=== PATIENT | male | born 1940 | race Two or more races ===

== ENCOUNTER → 2016-09-06 | Outpatient (REF) | payer MEDICARE, BC ==
[2016-09-06 13:20] LABS: FERRITIN 24 NG/ML (26-388)
[2016-09-06 13:22] LABS: VITAMIN B12 LEVEL 350 PG/ML (247-911)
== END ==
LOC: M LAB REF 12:41
PROVIDERS: ATTEND Internal Medicine
DX: R73.09 Other abnormal glucose (principal); D50.9 Iron deficiency anemia, unspecified; Z98.84 Bariatric surgery status

== ENCOUNTER → 2017-01-02 | Outpatient (REF) | payer MEDICARE, BC ==
[2017-01-02 14:30] LABS: FERRITIN 24 NG/ML (26-388)
[2017-01-02 14:32] LABS: VITAMIN B12 LEVEL 532 PG/ML (247-911)
== END ==
LOC: M LAB REF 12:48
PROVIDERS: ATTEND Internal Medicine
DX: D51.9 Vitamin B12 deficiency anemia, unspecified (principal); D50.9 Iron deficiency anemia, unspecified

== ENCOUNTER → 2017-08-28 | Outpatient (REF) | payer MEDICARE, OTHER, BC ==
[2017-08-28 18:50] LABS: FOLATE 20.1 NG/ML; VITAMIN B12 LEVEL 916 PG/ML
[2017-08-28 19:00] LABS: FERRITIN 20 NG/ML (26-388)
== END ==
LOC: M LAB REF 17:49
DX: D50.9 Iron deficiency anemia, unspecified (principal)
CPT/HCPCS: 82746

== ENCOUNTER → 2018-09-03 | Outpatient (REF) | payer MEDICARE ==
[2018-09-03 13:59] LABS: FOLATE 14.5 NG/ML
== END ==
LOC: M LAB REF 12:23
PROVIDERS: ATTEND Nurse Practitioner Family
DX: Z98.84 Bariatric surgery status (principal); D51.9 Vitamin B12 deficiency anemia, unspecified

== ENCOUNTER → 2019-01-07 | Outpatient (REF) | payer MEDICARE ==
[2019-01-07 13:03] LABS: FERRITIN 31 NG/ML (26-388)
[2019-01-07 15:30] LABS: FOLATE > 24.0 NG/ML; VITAMIN B12 LEVEL 341 PG/ML
[2019-01-09 00:08] LABS: Lyme Disease IgG/IgM Antibodie <0.91 ISR (0.00-0.90); Lyme Disease IgM Ab Quantitati <0.80 index (0.00-0.79)
== END ==
LOC: M LAB REF 11:52
PROVIDERS: ATTEND Internal Medicine
DX: Z98.84 Bariatric surgery status (principal); D50.9 Iron deficiency anemia, unspecified; M79.10 Myalgia, unspecified site

== ENCOUNTER → 2019-08-22 | Outpatient (REF) | payer MEDICARE ==
[2019-08-22 14:49] LABS: FERRITIN 27 NG/ML (26-388)
[2019-08-22 14:58] LABS: FOLATE > 24.0 NG/ML; VITAMIN B12 LEVEL 453 PG/ML
== END ==
LOC: M LAB REF 11:59
PROVIDERS: ATTEND Internal Medicine
DX: Z98.84 Bariatric surgery status (principal)

== ENCOUNTER → 2019-10-12 | Outpatient (CLI) | payer MEDICARE | LOC: M LABSMTC 09:32 | PROVIDERS: ATTEND Internal Medicine Cardiovascular Disease | DX: Z11.59 Encounter for screening for other viral diseases (principal); Z20.828 Contact with and (suspected) exposure to other viral communicable diseases | CPT/HCPCS: C9803; U0003 ==

== ENCOUNTER → 2019-11-27 | Outpatient (REF) | payer MEDICARE ==
[2019-11-27 19:13] LABS: PERCENT SATURATION 7.3 % (19.7-50.0)
== END ==
LOC: M LAB REF 11-26 08:23
PROVIDERS: ATTEND Internal Medicine
DX: D50.9 Iron deficiency anemia, unspecified (principal)

== ENCOUNTER → 2020-01-06 | Outpatient (REF) | payer MEDICARE | LOC: M LAB REF 12:26 | PROVIDERS: ATTEND Internal Medicine | DX: I50.33 Acute on chronic diastolic (congestive) heart failure (principal) ==

== ENCOUNTER → 2020-10-21 | Outpatient (REF) | payer MEDICARE ==
[2020-10-21 18:34] LABS: FERRITIN 23 NG/ML (26-388)
[2020-10-21 18:38] LABS: VITAMIN B12 LEVEL 438 PG/ML
[2020-10-21 18:39] LABS: FOLATE > 24.0 NG/ML
== END ==
LOC: M LAB REF 17:56
PROVIDERS: ATTEND Internal Medicine
DX: D50.9 Iron deficiency anemia, unspecified (principal)

== ENCOUNTER 2021-08-29 05:58 | Emergency (ER) | payer MEDICARE ==
[~2021-08-29] VITALS: Ht 170.2 cm; Wt 81.8 kg
[2021-08-29] MEDS ORDERED: XARE20TA PO (06:13)
[2021-08-29] MEDS ORDERED: VENTAER INH (06:13)
[2021-08-29] MEDS ORDERED: LASI20TA3 PO (06:13)
[2021-08-29] MEDS ORDERED: TREL1AER INH (06:13)
[2021-08-29] MEDS ORDERED: MORPHINE 4 MG/ML 1ML VIAL/SYRINGE IV ONE (06:35)
[2021-08-29] MEDS ORDERED: ONDANSETRON 4MG/2ML VIAL IV ONE (06:35)
[2021-08-29 07:13] LABS: BASO # 0.1 10^3/uL (0.0-0.2); BASO % 0.8 % (0.0-1.0); EOS # 0.1 10^3/uL (0.0-0.5); HEMATOCRIT 40.7 % (42.0-52.0); HEMOGLOBIN 12.5 g/dl (13.5-17.5); LYMPH # 1.4 10^3/uL (1.5-5.0); LYMPH % 12.2 % (24.0-44.0); MEAN CORPUSCULAR HEMOGLOBIN 26.9 pg (27.0-33.0); MEAN CORPUSCULAR HGB CONC 30.7 g/dl (32.0-36.5); MEAN CORPUSCULAR VOLUME 87.5 fl (80.0-96.0); MONO # 1.4 10^3/uL (0.0-0.8); MONO % 11.8 % (2.0-8.0); NEUTROPHILS # 8.5 10^3/uL (1.5-8.5); NEUTROPHILS % 73.2 % (36.0-66.0); PLATELET COUNT, AUTOMATED 214 10^3/uL (150-450); RED BLOOD COUNT 4.65 10^6/uL (4.30-6.10); WHITE BLOOD COUNT 11.6 10^3/uL (4.0-10.0)
[2021-08-29] MEDS ORDERED: methylPREDNISolone 125MG 2ML VIAL IV ONE (07:15)
[2021-08-29 07:29] LABS: INR 1.04
[2021-08-29] MEDS ORDERED: ISOVUE-370 76% 100ML VIAL As Ordered ONE (07:31)
[2021-08-29 07:35] LABS: MB/CK RELATIVE INDEX 2.13 (< OR =4)
[2021-08-29 07:41] LABS: ALBUMIN 3.4 GM/DL (3.2-5.2); BILIRUBIN,DIRECT 0.3 MG/DL (0.0-0.2); BILIRUBIN,TOTAL 0.6 MG/DL (0.2-1.0); THYROID STIMULATING HORMONE 0.272 uIU/ML (0.358-3.740); THYROXINE (T4) 8.1 UG/DL (4.5-12.0); TOTAL PROTEIN 6.8 GM/DL (6.4-8.2)
[2021-08-29] MEDS ORDERED: IPRATROPIUM 0.5MG/ALBUTEROL 2.5MG INH SOL UD 3ML (DUONEB) NEB ONE (08:15)
[2021-08-29] MEDS ORDERED: diazePAM 10MG/2ML SYRINGE (J3360 PER 5MG) IV ONE (08:40)
[2021-08-29 09:42] LABS: CK-MB VALUE MASS < 1.0 NG/ML (<3.6); CPK CREATINE PHOSPHOKINASE 39 U/L (39-308); MB/CK RELATIVE INDEX 2.56 (< OR =4)
[2021-08-29] MEDS ORDERED: traMADol 50 MG TAB PO ONE (09:50)
[2021-08-29 10:15] LABS: VENOUS BASE EXCESS 0.9 (-2.0-2.0); VENOUS HCO3 28.5 MEQ/L (23.0-27.0); VENOUS O2 SATURATION 62.2 % (60.0-80.0); VENOUS PARTIAL PRESSURE CO2 60.7 mmHg (38.0-50.0); VENOUS PARTIAL PRESSURE O2 34.8 mmHg (30.0-50.0); VENOUS STANDARD HCO3 24.5 MEQ/L; VENOUS TOTAL CO2 30.4 MEQ/L (24.0-28.0)
[2021-08-29] MEDS ORDERED: METH-1164 PO (11:07)
[2021-08-29] MEDS ORDERED: TRAM50TA2 PO (11:07)
[2021-08-29] MEDS ORDERED: IPRA0.00 INH (11:07)
[2021-08-29] MEDS ORDERED: AZIT-12 PO (11:07)
[2021-08-29 11:15] VITALS: BP 132/75
== END 2021-08-29 11:39 | disposition home or self-care (01) ==
LOC: M ED 05:58
DX: J44.1 Chronic obstructive pulmonary disease with (acute) exacerbation (principal); M54.2 Cervicalgia; R06.02 Shortness of breath; K80.20 Calculus of gallbladder without cholecystitis without obstruction; I48.91 Unspecified atrial fibrillation; I70.8 Atherosclerosis of other arteries; F17.200 Nicotine dependence, unspecified, uncomplicated; Z79.01 Long term (current) use of anticoagulants; Z79.899 Other long term (current) drug therapy
CPT/HCPCS: 70498; 71045; 71275; 80047; 80076; 82550; 82553; 82803; 83605; 83880; 84436; 84443; 84484; 85025; 85610; 87486; 87581; 87633; 87798; 93005; 93041; 94640; 94760; 96374; 96375; 99285; J2270; J2405; J2930; J3360; Q9967

== ENCOUNTER 2021-09-01 00:38 | Inpatient (IN) | payer MEDICARE ==
[~2021-09-01] VITALS: Ht 170.2 cm; Wt 85.7 kg
[~2021-09-01 00:38] MED LIST: AZIT-12 PO; IPRA0.00 INH; LASI20TA3 PO; METH-1164 PO; TRAM50TA2 PO; TREL1AER INH; VENTAER INH; XARE20TA PO
[2021-09-01 01:56] LABS: HEMATOCRIT 40.9 % (42.0-52.0); HEMOGLOBIN 12.8 g/dl (13.5-17.5); MEAN CORPUSCULAR HEMOGLOBIN 26.9 pg (27.0-33.0); MEAN CORPUSCULAR HGB CONC 31.3 g/dl (32.0-36.5); MEAN CORPUSCULAR VOLUME 85.9 fl (80.0-96.0); PLATELET COUNT, AUTOMATED 250 10^3/uL (150-450); RED BLOOD COUNT 4.76 10^6/uL (4.30-6.10); WHITE BLOOD COUNT 12.4 10^3/uL (4.0-10.0)
[2021-09-01 02:31] LABS: ALBUMIN 3.4 GM/DL (3.2-5.2); ALT/SGPT 23 U/L (12-78); BILIRUBIN,TOTAL 0.7 MG/DL (0.2-1.0); BLOOD UREA NITROGEN 17 MG/DL (7-18); CALCIUM LEVEL 9.9 MG/DL (8.8-10.2); CARBON DIOXIDE LEVEL 29 MEQ/L (21-32); CHLORIDE LEVEL 103 MEQ/L (98-107); CREATININE FOR GFR 1.13 MG/DL (0.70-1.30); GLOMERULAR FILTRATION RATE > 60.0 (>35); GLUCOSE, FASTING 134 MG/DL (70-100); LIPASE 93 U/L (73-393); POTASSIUM SERUM 4.7 MEQ/L (3.5-5.1); SODIUM LEVEL 140 MEQ/L (136-145); TOTAL PROTEIN 7.2 GM/DL (6.4-8.2)
[2021-09-01 04:43] LABS: APPEARANCE, URINE HAZY (CLEAR); BACTERIA, URINE AUTO NEGATIVE (NEGATIVE); BILIRUBIN, URINE AUTO NEGATIVE (NEGATIVE); BLOOD, URINE BLOOD NEGATIVE (NEGATIVE); COLOR, URINE AMBER (YELLOW); GLUCOSE, URINE (UA) AUTO NEGATIVE (NEGATIVE); KETONE, URINE AUTO 1+ mg/dL (NEGATIVE); LEUKOCYTE ESTERASE, URINE AUTO NEGATIVE (NEGATIVE); MUCUS, URINE SMALL (NEGATIVE); NITRITE, URINE AUTO NEGATIVE (NEGATIVE); PROTEIN, URINE AUTO 1+ mg/dL (NEGATIVE); RBC, URINE AUTO 0 /HPF (0-3); SPECIFIC GRAVITY URINE AUTO 1.027 (1.002-1.035); SQUAMOUS EPITHELIAL CELL UR AU 0 /HPF (0-6); WBC, URINE AUTO 0 /HPF (0-3)
[2021-09-01] MEDS ORDERED: ONDANSETRON 4MG/2ML VIAL IV ONE (05:00)
[2021-09-01] MEDS: GASTROGRAFIN SOLUTION 30ML PO SCH ×2 (05:40→06:10)
[2021-09-01] MEDS ORDERED: ISOVUE-370 76% 100ML VIAL As Ordered ONE (07:18)
[2021-09-01 09:27] LABS: RSV AMPLIFICATION NEGATIVE (NEGATIVE)
[2021-09-01] MEDS ORDERED: TRAM50TA2 PO (10:12)
[2021-09-01] MEDS ORDERED: AZIT-10 PO (10:12)
[2021-09-01] MEDS ORDERED: METH-1164 PO (10:12)
[2021-09-01] MEDS ORDERED: IPRA0.00 INH (10:12)
[2021-09-01] MEDS ORDERED: HOME MED LIST COMPLETE! XX SCH (10:15)
[2021-09-01] MEDS ORDERED: IPRATROPIUM 0.5MG/ALBUTEROL 2.5MG INH SOL UD 3ML (DUONEB) INH PRN (10:50)
[2021-09-01] MEDS ORDERED: MAALOX 30 ML SUSP *UDC PO PRN (10:50)
[2021-09-01] MEDS ORDERED: MOM 30ML SUSPENSION UDC PO PRN (10:50)
[2021-09-01] MEDS ORDERED: methocarbamoL 500 MG TAB PO PRN (10:50)
[2021-09-01] MEDS ORDERED: ALBUTEROL 90 MCG/ACT 8GM HFA INHALER INH PRN (10:50)
[2021-09-01] MEDS ORDERED: ACETAMINOPHEN TAB 650MG DOSE (2X325MG) PO PRN (10:50)
[2021-09-01] MEDS ORDERED: traMADol 50 MG TAB PO PRN (10:50)
[2021-09-01] MEDS: PANTOPRAZOLE 40MG VIAL IV SCH (11:27)
[2021-09-01] MEDS: CIPROFLOXACIN 400 MG in IV 1 EA IV SCH ×2 (11:27→23:58)
[2021-09-01] MEDS: NS 1,000 ML IV SCH ×2 (11:27→21:27)
[2021-09-01] MEDS: metroNIDAZOLE 500 MG in IV 1 EA IV SCH ×2 (12:50→20:02)
[2021-09-01] MEDS: SYMBICORT 160/4.5MCG INHALER 6GM INH SCH ×2 (12:53→19:20)
[2021-09-01] MEDS: TIOTROPIUM INHALER/CAPSULE (SPIRIVA) INH SCH (12:53)
[2021-09-01] MEDS: ONDANSETRON 4MG/2ML VIAL IV PRN ×2 (14:02→18:36)
[2021-09-01] MEDS: FUROSEMIDE 20 MG TAB PO SCH (14:03)
[2021-09-01 15:30] VITALS: BP 118/76
[2021-09-01] MEDS ORDERED: GLUCAGON INJ 1MG VIAL SC PRN (19:35)
[2021-09-01] MEDS ORDERED: GLUCOSE 4GM CHEW TABLET PO PRN (19:35)
[2021-09-01] MEDS ORDERED: DEXTROSE 50% 50 ML SYRINGE IV PRN (19:35)
[2021-09-01] MEDS: PROMETHAZINE 25MG/ML 1ML VIAL IV PRN (20:45)
[2021-09-01 22:00] VITALS: BP 145/78
[2021-09-02] MEDS: metroNIDAZOLE 500 MG in IV 1 EA IV SCH ×3 (04:32→20:04)
[2021-09-02] MEDS: NS 1,000 ML IV SCH ×2 (05:51→09:28)
[2021-09-02 06:00] VITALS: BP 134/76
[2021-09-02] MEDS: TIOTROPIUM INHALER/CAPSULE (SPIRIVA) INH SCH (07:35)
[2021-09-02] MEDS: SYMBICORT 160/4.5MCG INHALER 6GM INH SCH ×2 (07:35→19:29)
[2021-09-02 08:05] LABS: BASO # 0.1 10^3/uL (0.0-0.2); BASO % 0.8 % (0.0-1.0); EOS # 0.2 10^3/uL (0.0-0.5); EOS % 2.8 % (0.0-3.0); HEMATOCRIT 36.4 % (42.0-52.0); HEMOGLOBIN 11.3 g/dl (13.5-17.5); LYMPH # 1.4 10^3/uL (1.5-5.0); LYMPH % 16.4 % (24.0-44.0); MEAN CORPUSCULAR HEMOGLOBIN 27.2 pg (27.0-33.0); MEAN CORPUSCULAR VOLUME 87.7 fl (80.0-96.0); MONO % 11.6 % (2.0-8.0); NEUTROPHILS # 5.7 10^3/uL (1.5-8.5); NEUTROPHILS % 67.1 % (36.0-66.0); PLATELET COUNT, AUTOMATED 229 10^3/uL (150-450); RED BLOOD COUNT 4.15 10^6/uL (4.30-6.10); WHITE BLOOD COUNT 8.5 10^3/uL (4.0-10.0)
[2021-09-02 08:39] LABS: ALBUMIN 2.7 GM/DL (3.2-5.2); ALT/SGPT 16 U/L (12-78); BILIRUBIN,TOTAL 0.6 MG/DL (0.2-1.0); BLOOD UREA NITROGEN 15 MG/DL (7-18); CALCIUM LEVEL 8.1 MG/DL (8.8-10.2); CARBON DIOXIDE LEVEL 30 MEQ/L (21-32); CHLORIDE LEVEL 106 MEQ/L (98-107); CREATININE FOR GFR 1.23 MG/DL (0.70-1.30); GLOMERULAR FILTRATION RATE > 60.0 (>35); GLUCOSE, FASTING 81 MG/DL (70-100); SODIUM LEVEL 140 MEQ/L (136-145); TOTAL PROTEIN 5.6 GM/DL (6.4-8.2)
[2021-09-02] MEDS: PANTOPRAZOLE 40MG VIAL IV SCH (09:26)
[2021-09-02] MEDS: FUROSEMIDE 20 MG TAB PO SCH (09:27)
[2021-09-02] MEDS: D5W/0.45% SODIUM CHLORIDE 1,000 ML IV SCH (12:09)
[2021-09-02] MEDS: CIPROFLOXACIN 400 MG in IV 1 EA IV SCH ×2 (12:09→23:00)
[2021-09-02] MEDS: ONDANSETRON 4MG/2ML VIAL IV PRN ×2 (13:07→19:30)
[2021-09-02] MEDS: LACTULOSE 20 GM/30 ML SYRUP UD PO SCH ×2 (13:07→20:04)
[2021-09-02 14:00] VITALS: BP 150/80
[2021-09-02] MEDS ORDERED: METOCLOPRAMIDE INJ 10MG/2ML VIAL (J2765 PER 1) IV ONE (14:55)
[2021-09-02 19:51] VITALS: BP 132/66
[2021-09-02] MEDS: PROMETHAZINE 25MG/ML 1ML VIAL IV PRN (23:00)
[2021-09-03] MEDS: ONDANSETRON 4MG/2ML VIAL IV PRN (02:30)
[2021-09-03] MEDS: D5W/0.45% SODIUM CHLORIDE 1,000 ML IV SCH (02:31)
[2021-09-03] MEDS: metroNIDAZOLE 500 MG in IV 1 EA IV SCH ×3 (04:02→20:31)
[2021-09-03 05:24] VITALS: BP 146/96
[2021-09-03] MEDS: PROMETHAZINE 25MG/ML 1ML VIAL IV PRN (05:58)
[2021-09-03 06:00] VITALS: BP 144/78
[2021-09-03] MEDS: SYMBICORT 160/4.5MCG INHALER 6GM INH SCH ×2 (07:28→19:25)
[2021-09-03] MEDS: TIOTROPIUM INHALER/CAPSULE (SPIRIVA) INH SCH (07:28)
[2021-09-03] MEDS: PANTOPRAZOLE 40MG VIAL IV SCH (09:14)
[2021-09-03] MEDS: FUROSEMIDE 20 MG TAB PO SCH (09:14)
[2021-09-03 09:16] LABS: BASO # 0.1 10^3/uL (0.0-0.2); BASO % 0.8 % (0.0-1.0); EOS # 0.1 10^3/uL (0.0-0.5); EOS % 1.1 % (0.0-3.0); HEMATOCRIT 40.9 % (42.0-52.0); HEMOGLOBIN 12.7 g/dl (13.5-17.5); LYMPH % 11.4 % (24.0-44.0); MEAN CORPUSCULAR HEMOGLOBIN 26.7 pg (27.0-33.0); MEAN CORPUSCULAR HGB CONC 31.1 g/dl (32.0-36.5); MEAN CORPUSCULAR VOLUME 85.9 fl (80.0-96.0); MONO # 0.8 10^3/uL (0.0-0.8); MONO % 9.4 % (2.0-8.0); NEUTROPHILS # 6.6 10^3/uL (1.5-8.5); NEUTROPHILS % 75.5 % (36.0-66.0); PLATELET COUNT, AUTOMATED 254 10^3/uL (150-450); RED BLOOD COUNT 4.76 10^6/uL (4.30-6.10); WHITE BLOOD COUNT 8.8 10^3/uL (4.0-10.0)
[2021-09-03 09:40] LABS: ALBUMIN 3.1 GM/DL (3.2-5.2); ALT/SGPT 17 U/L (12-78); BILIRUBIN,TOTAL 0.5 MG/DL (0.2-1.0); BLOOD UREA NITROGEN 10 MG/DL (7-18); CALCIUM LEVEL 9.1 MG/DL (8.8-10.2); CARBON DIOXIDE LEVEL 27 MEQ/L (21-32); CHLORIDE LEVEL 103 MEQ/L (98-107); CREATININE FOR GFR 0.99 MG/DL (0.70-1.30); GLOMERULAR FILTRATION RATE > 60.0 (>35); GLUCOSE, FASTING 131 MG/DL (70-100); POTASSIUM SERUM 3.8 MEQ/L (3.5-5.1); SODIUM LEVEL 140 MEQ/L (136-145); TOTAL PROTEIN 6.4 GM/DL (6.4-8.2)
[2021-09-03] MEDS: NS 0.45% 1,000 ML IV SCH (12:39)
[2021-09-03] MEDS: CIPROFLOXACIN 400 MG in IV 1 EA IV SCH ×2 (12:43→23:14)
[2021-09-03 14:00] VITALS: BP 149/72
[2021-09-03 20:26] VITALS: BP 145/84
[2021-09-04] MEDS: NS 0.45% 1,000 ML IV SCH ×2 (02:40→08:19)
[2021-09-04] MEDS: metroNIDAZOLE 500 MG in IV 1 EA IV SCH ×3 (04:03→20:10)
[2021-09-04 05:18] VITALS: BP 141/79
[2021-09-04] MEDS: SYMBICORT 160/4.5MCG INHALER 6GM INH SCH ×2 (07:25→19:24)
[2021-09-04] MEDS: TIOTROPIUM INHALER/CAPSULE (SPIRIVA) INH SCH (07:25)
[2021-09-04] MEDS: PANTOPRAZOLE 40MG VIAL IV SCH (08:18)
[2021-09-04] MEDS: FUROSEMIDE 20 MG TAB PO SCH (08:18)
[2021-09-04 08:41] LABS: BASO # 0.1 10^3/uL (0.0-0.2); EOS # 0.4 10^3/uL (0.0-0.5); EOS % 3.8 % (0.0-3.0); HEMATOCRIT 36.6 % (42.0-52.0); HEMOGLOBIN 11.5 g/dl (13.5-17.5); LYMPH # 1.3 10^3/uL (1.5-5.0); LYMPH % 12.4 % (24.0-44.0); MEAN CORPUSCULAR HEMOGLOBIN 27.4 pg (27.0-33.0); MEAN CORPUSCULAR HGB CONC 31.4 g/dl (32.0-36.5); MEAN CORPUSCULAR VOLUME 87.4 fl (80.0-96.0); MONO % 9.8 % (2.0-8.0); NEUTROPHILS # 7.3 10^3/uL (1.5-8.5); NEUTROPHILS % 71.1 % (36.0-66.0); PLATELET COUNT, AUTOMATED 256 10^3/uL (150-450); RED BLOOD COUNT 4.19 10^6/uL (4.30-6.10); WHITE BLOOD COUNT 10.2 10^3/uL (4.0-10.0)
[2021-09-04 09:06] LABS: ALBUMIN 2.6 GM/DL (3.2-5.2); ALT/SGPT 15 U/L (12-78); BILIRUBIN,TOTAL 0.4 MG/DL (0.2-1.0); BLOOD UREA NITROGEN 7 MG/DL (7-18); CALCIUM LEVEL 8.5 MG/DL (8.8-10.2); CARBON DIOXIDE LEVEL 27 MEQ/L (21-32); CHLORIDE LEVEL 106 MEQ/L (98-107); GLOMERULAR FILTRATION RATE > 60.0 (>35); GLUCOSE, FASTING 94 MG/DL (70-100); MAGNESIUM LEVEL 1.9 MG/DL (1.8-2.4); POTASSIUM SERUM 3.9 MEQ/L (3.5-5.1); SODIUM LEVEL 141 MEQ/L (136-145)
[2021-09-04] MEDS: D5W/0.45% SODIUM CHLORIDE 1,000 ML IV SCH (11:10)
[2021-09-04] MEDS: CIPROFLOXACIN 400 MG in IV 1 EA IV SCH (11:12)
[2021-09-04] MEDS: HEPARIN SOD (PORCINE) 5000UNITS/ML 1ML VIAL/SYRINGE SQ SCH ×2 (13:00→20:10)
[2021-09-04 14:00] VITALS: BP 122/90
[2021-09-04 21:05] VITALS: BP 130/73
[2021-09-05] MEDS: D5W/0.45% SODIUM CHLORIDE 1,000 ML IV SCH ×3 (02:41→23:26)
[2021-09-05] MEDS: metroNIDAZOLE 500 MG in IV 1 EA IV SCH ×3 (04:06→20:13)
[2021-09-05 04:50] VITALS: BP 140/68
[2021-09-05] MEDS: HEPARIN SOD (PORCINE) 5000UNITS/ML 1ML VIAL/SYRINGE SQ SCH ×3 (05:04→21:33)
[2021-09-05 07:39] LABS: BASO # 0.1 10^3/uL (0.0-0.2); EOS # 0.5 10^3/uL (0.0-0.5); EOS % 5.3 % (0.0-3.0); HEMOGLOBIN 10.8 g/dl (13.5-17.5); LYMPH # 1.4 10^3/uL (1.5-5.0); LYMPH % 16.3 % (24.0-44.0); MEAN CORPUSCULAR HEMOGLOBIN 26.5 pg (27.0-33.0); MEAN CORPUSCULAR HGB CONC 30.9 g/dl (32.0-36.5); MONO # 0.9 10^3/uL (0.0-0.8); MONO % 10.5 % (2.0-8.0); NEUTROPHILS # 5.7 10^3/uL (1.5-8.5); NEUTROPHILS % 64.4 % (36.0-66.0); PLATELET COUNT, AUTOMATED 248 10^3/uL (150-450); RED BLOOD COUNT 4.07 10^6/uL (4.30-6.10); WHITE BLOOD COUNT 8.8 10^3/uL (4.0-10.0)
[2021-09-05] MEDS: SYMBICORT 160/4.5MCG INHALER 6GM INH SCH ×2 (07:40→19:52)
[2021-09-05] MEDS: TIOTROPIUM INHALER/CAPSULE (SPIRIVA) INH SCH (07:40)
[2021-09-05 08:07] LABS: ALBUMIN 2.5 GM/DL (3.2-5.2); ALT/SGPT 14 U/L (12-78); BILIRUBIN,TOTAL 0.3 MG/DL (0.2-1.0); BLOOD UREA NITROGEN 9 MG/DL (7-18); CALCIUM LEVEL 7.7 MG/DL (8.8-10.2); CARBON DIOXIDE LEVEL 29 MEQ/L (21-32); CHLORIDE LEVEL 106 MEQ/L (98-107); CREATININE FOR GFR 0.96 MG/DL (0.70-1.30); GLOMERULAR FILTRATION RATE > 60.0 (>35); GLUCOSE, FASTING 114 MG/DL (70-100); MAGNESIUM LEVEL 1.7 MG/DL (1.8-2.4); POTASSIUM SERUM 3.6 MEQ/L (3.5-5.1); SODIUM LEVEL 141 MEQ/L (136-145); TOTAL PROTEIN 5.1 GM/DL (6.4-8.2)
[2021-09-05] MEDS ORDERED: MAGNESIUM CITRATE 300 ML BTL PO ONE (09:00)
[2021-09-05] MEDS: PANTOPRAZOLE 40MG VIAL IV SCH (09:08)
[2021-09-05] MEDS: FUROSEMIDE 20 MG TAB PO SCH (09:08)
[2021-09-05] MEDS: CIPROFLOXACIN 400 MG in IV 1 EA IV SCH ×4 (12:49→23:15)
[2021-09-05 14:00] VITALS: BP 126/75
[2021-09-05] MEDS: MAG SULF 1GM/100ML (MAG RUN) 1 GM in IV 1 EA IV SCH ×2 (15:24→17:10)
[2021-09-05] MEDS ORDERED: MAG SULF 1GM/100ML (MAG RUN) 1 GM in IV 1 EA IV ONE (17:00)
[2021-09-05 21:28] VITALS: BP 124/67
[2021-09-06] MEDS: metroNIDAZOLE 500 MG in IV 1 EA IV SCH (04:03)
[2021-09-06 05:43] LABS: BASO # 0.1 10^3/uL (0.0-0.2); BASO % 1.1 % (0.0-1.0); EOS # 0.4 10^3/uL (0.0-0.5); EOS % 4.8 % (0.0-3.0); HEMATOCRIT 35.9 % (42.0-52.0); HEMOGLOBIN 11.3 g/dl (13.5-17.5); LYMPH # 1.5 10^3/uL (1.5-5.0); LYMPH % 16.8 % (24.0-44.0); MEAN CORPUSCULAR HEMOGLOBIN 27.1 pg (27.0-33.0); MEAN CORPUSCULAR HGB CONC 31.5 g/dl (32.0-36.5); MEAN CORPUSCULAR VOLUME 86.1 fl (80.0-96.0); MONO # 0.9 10^3/uL (0.0-0.8); MONO % 10.5 % (2.0-8.0); NEUTROPHILS # 5.8 10^3/uL (1.5-8.5); NEUTROPHILS % 64.2 % (36.0-66.0); PLATELET COUNT, AUTOMATED 253 10^3/uL (150-450); RED BLOOD COUNT 4.17 10^6/uL (4.30-6.10)
[2021-09-06] MEDS: HEPARIN SOD (PORCINE) 5000UNITS/ML 1ML VIAL/SYRINGE SQ SCH (05:59)
[2021-09-06 06:00] VITALS: BP 123/69
[2021-09-06 06:14] LABS: BLOOD UREA NITROGEN 7 MG/DL (7-18); CALCIUM LEVEL 8.5 MG/DL (8.8-10.2); CARBON DIOXIDE LEVEL 31 MEQ/L (21-32); CHLORIDE LEVEL 107 MEQ/L (98-107); CREATININE FOR GFR 0.94 MG/DL (0.70-1.30); GLOMERULAR FILTRATION RATE > 60.0 (>35); GLUCOSE, FASTING 115 MG/DL (70-100); MAGNESIUM LEVEL 2.5 MG/DL (1.8-2.4); POTASSIUM SERUM 3.8 MEQ/L (3.5-5.1); SODIUM LEVEL 144 MEQ/L (136-145)
[2021-09-06] MEDS: TIOTROPIUM INHALER/CAPSULE (SPIRIVA) INH SCH (08:02)
[2021-09-06] MEDS: SYMBICORT 160/4.5MCG INHALER 6GM INH SCH (08:03)
[2021-09-06] MEDS ORDERED: CIPR-249 PO (08:34)
[2021-09-06] MEDS ORDERED: METR-265 PO (08:34)
[2021-09-06] MEDS: PANTOPRAZOLE 40MG VIAL IV SCH (08:38)
[2021-09-06] MEDS: FUROSEMIDE 20 MG TAB PO SCH (08:38)
== END 2021-09-06 12:13 | disposition home or self-care (01) | DRG 390 ==
LOC: M ED 00:38 → M ED INP 10:46 → ENRESERV 14:23 → M MSPAV 15:09
PROVIDERS: ADMIT Family Medicine; ATTEND Internal Medicine
DX: K56.50 Intestinal adhesions [bands], unspecified as to partial versus complete obstruction (principal); J44.9 Chronic obstructive pulmonary disease, unspecified; I48.91 Unspecified atrial fibrillation; I10 Essential (primary) hypertension; Z98.84 Bariatric surgery status; Z90.49 Acquired absence of other specified parts of digestive tract; M54.50 Low back pain, unspecified; G89.29 Other chronic pain; Z79.01 Long term (current) use of anticoagulants; Z87.891 Personal history of nicotine dependence; Z20.822 Contact with and (suspected) exposure to COVID-19; Z79.2 Long term (current) use of antibiotics

== ENCOUNTER → 2021-12-05 | Outpatient (REF) | payer MEDICARE ==
[~2021-12-05] MED LIST changes: +AZIT-10 PO; +CIPR-249 PO; +METR-265 PO
[2021-12-05 19:16] LABS: FERRITIN 23 NG/ML (26-388)
[2021-12-05 19:50] LABS: VITAMIN B12 LEVEL 414 PG/ML (247-911)
== END ==
LOC: M LAB REF 16:50
PROVIDERS: ATTEND Internal Medicine
DX: Z98.84 Bariatric surgery status (principal)

== ENCOUNTER → 2021-12-14 | Outpatient (REF) | payer MEDICARE ==
[2021-12-14 17:20] LABS: PERCENT SATURATION 14.4 % (19.7-50.0)
== END ==
LOC: M LAB REF 16:13
PROVIDERS: ATTEND Internal Medicine
DX: Z98.84 Bariatric surgery status (principal)